=== PATIENT | female | born 1990 | race Caucasian/White ===

== ENCOUNTER 2016-10-20 18:47 | Emergency (ER) | payer OTHER ==
[~2016-10-20] VITALS: Ht 167.6 cm; Wt 100.5 kg
[~2016-10-20 18:47] MED LIST: AMOX TR-K CLV1 EAC4 PO; BUPROPION XL150 MG PO; COUMADIN6 MG PO; DILAUDID2 MG PO; KEFLEX500 MG PO; MILLIPRED DP5 M1; NASONEX17 GM; NEOMYCIN-POLYMY10 M1; NORCO 5/3251 TABLET PO; NORCO 7.5/321 TABLET PO; PRED FORTE100 DROP/5; VALIUM5 MG PO; VANTIN100 MG PO; VICODIN,LORT1 TABLET PO; WARFARIN SODIU7.5 MG PO; WELLBUTRIN XL150 MG PO; ZOLOFT100 MG PO
[2016-10-20 19:09] LABS: HEMATOCRIT 40.2 % (36.0-46.0); MCH 32.3 PG (29.0-34.0); MCHC 34.6 G/DL (30.0-36.0); MCV 93.3 FL (83-99); MEAN PLAT.VOLUME 8.8 uM^3 (9.5-12.4); PLATELET COUNT 350 K/uL (156-360); RBC DIS.WIDTH-SD 41.9 % (39-53); RED BLOOD COUNT 4.31 M/uL (3.80-5.20)
[2016-10-20 19:15] LABS: INTER. NORMALIZED RATIO 2.1; PROTHROMBIN TIME 23.5 SEC (10.2-12.9)
[2016-10-20 19:18] LABS: PTT 33.2 SEC (25-37)
[2016-10-20 19:23] LABS: CHLORIDE 106 mEq/L (99-109); POTASSIUM 3.5 mEq/L (3.7-5.4); SODIUM 141 mEq/L (136-147)
[2016-10-20 19:25] LABS: GLUCOSE 84 mg/dL (70-99)
[2016-10-20 19:27] LABS: ANION GAP 10 MEQ/L (2-14)
[2016-10-20 19:29] LABS: GFR ESTIMATE (CALCULATED) > 59 mL/min/
[2016-10-20 19:30] LABS: UREA NITROGEN (BUN) 15 mg/dL (9-23)
[2016-10-20 19:33] LABS: TROP-I INTERPRETATION NEGATIVE; TROPONIN-I < 0.01 ng/mL (0.0-0.30)
[2016-10-20 21:59] VITALS: BP 117/87
== END 2016-10-20 22:00 | disposition home or self-care (01) ==
LOC: EME 18:47 → RME 18:47
DX: R07.81 Pleurodynia (principal); D68.9 Coagulation defect, unspecified; D68.59 Other primary thrombophilia; Z86.711 Personal history of pulmonary embolism; Z79.01 Long term (current) use of anticoagulants
CPT/HCPCS: 71020; 71275; 80048; 84484; 85027; 85379; 85610; 85730; 93005; 99281; 99285; J7030

== ENCOUNTER 2017-04-16 16:12 | Emergency (ER) | payer BC ==
[~2017-04-16] VITALS: Ht 167.6 cm; Wt 99.7 kg
[2017-04-16 17:29] LABS: HEMATOCRIT 40.5 % (36.0-46.0); HEMOGLOBIN 14.5 G/DL (11.9-15.5); MCH 32.4 PG (29.0-34.0); MCHC 35.8 G/DL (30.0-36.0); MCV 90.6 FL (83-99); PLATELET COUNT 388 K/uL (156-360); RBC DIS.WIDTH-CV 12.1 % (11.8-14.6); RBC DIS.WIDTH-SD 39.8 % (39-53); RED BLOOD COUNT 4.47 M/uL (3.80-5.20); WHITE BLOOD COUNT 9.1 K/uL (4.1-10.2)
[2017-04-16 18:15] LABS: CHLORIDE 104 MEQ/L (99-109); CREATININE 0.7 MG/DL (0.6-1.3); GFR ESTIMATE (CALCULATED) > 59 mL/min/; GLUCOSE 107 mg/dL (70-99); POTASSIUM 3.2 MEQ/L (3.7-5.4); SODIUM 137 MEQ/L (136-147); UREA NITROGEN (BUN) 13 mg/dL (9-23)
[2017-04-16 20:32] LABS: APPEARANCE CLOUDY ((CLEAR)); BILIRUBIN NEGATIVE; BLOOD SMALL; COLOR YELLOW ((YELLOW)); GLUCOSE (STRIP) NEGATIVE; KETONES 20; LEUKOCYTES NEGATIVE; NITRITE NEGATIVE; PROTEIN (STRIP) NEGATIVE; SPECIFIC GRAVITY 1.021 (1.000-1.030); UROBILINOGEN 0.2 MG/DL (0.2-1.0)
[2017-04-16 21:00] VITALS: BP 105/65
[2017-04-16 21:11] LABS: EPITHELIAL CELLS 3+ /HPF; MUCUS 1+ /LPF
[2017-04-16 21:12] LABS: BACTERIA 4+ /HPF; RED BLOOD CELLS RARE /HPF (0-5); UCUL ADDED? YES; WHITE BLOOD CELLS 0-5 /HPF (0-5)
== END 2017-04-16 21:24 | disposition home or self-care (01) ==
LOC: EME 16:12
DX: E86.0 Dehydration (principal); Z98.890 Other specified postprocedural states; Z98.84 Bariatric surgery status; D68.59 Other primary thrombophilia; Z86.711 Personal history of pulmonary embolism; Z79.01 Long term (current) use of anticoagulants; Z88.1 Allergy status to other antibiotic agents
CPT/HCPCS: 80048; 81003; 85027; 87086; 99281; 99284; J7030